=== PATIENT | male | born 1970 | race Caucasian/White ===

== ENCOUNTER 2023-09-26 20:13 | Observation (INO) | payer BC ==
[2023-09-26 21:17] LABS: Basophils # (A) 0.1 k/uL (0-0.2); Basophils % (A) 1 %; Eosinophils # (A) 0.2 k/uL (0-0.7); Eosinophils % (A) 2 %; HCT 49.6 % (39.0-53.0); HGB 17.2 gm/dL (13.0-17.5); Lymphocytes # (A) 2.7 k/uL (1.0-4.8); Lymphocytes % (A) 29 %; MCH 31.2 pg (25.0-35.0); MCHC 34.6 g/dL (31.0-37.0); MCV 90.1 fL (80.0-100.0); Mean Platelet Volume 8.4; Monocytes # (A) 0.5 k/uL (0-1.0); Monocytes % (A) 5 %; Neutrophils # (A) 5.6 k/uL (1.3-7.7); Neutrophils % (A) 61 %; Platelet Count 234 k/uL (150-450); RBC 5.51 m/uL (4.30-5.90); WBC 9.2 k/uL (3.8-10.6)
[2023-09-26 21:28] LABS: ALT 21 U/L (4-49); AST 27 U/L (17-59); African American GFR (CKD) >90 (>60 ml/min/1.73 sqM); Albumin 4.6 g/dL (3.5-5.0); Alkaline Phosphatase 56 U/L (38-126); Anion Gap 10 mmol/L; Blood Urea Nitrogen 15 mg/dL (9-20); Calcium 9.6 mg/dL (8.4-10.2); Carbon Dioxide 21 mmol/L (22-30); Chloride 107 mmol/L (98-107); Glucose 68 mg/dL (74-99); Lipase 100 U/L (23-300); Magnesium 2.1 mg/dL (1.6-2.3); Non-African American GFR(CKD) 81 (>60 ml/min/1.73 sqM); Potassium 4.6 mmol/L (3.5-5.1); Sodium 138 mmol/L (137-145); Total Protein 7.6 g/dL (6.3-8.2)
[2023-09-26 21:31] LABS: Prothrombin Time 11.2 sec (10.0-12.5)
[2023-09-26 21:32] LABS: Partial Thromboplastin Time 24.3 sec (22.0-30.0)
[2023-09-26 21:36] LABS: NT-Pro-B-Type Natriuretic Pept 97 pg/mL
[2023-09-26] MEDS ORDERED: NALOXONE 0.4 MG/ML 1 ML VIAL IV PRN (22:17)
[2023-09-26] MEDS: ASPIRIN 81 MG PO STA (22:21)
--- NOTE | 2023-09-26 22:33 | ED ---
Chest Pain HPI - General Chief Complaint: Chest Pain Stated Complaint: Chest Pain,Sob Time Seen by Provider: 09/26/23 21:26 Source: patient Mode of arrival: ambulatory Limitations: no limitations - History of Present Illness Initial Comments: 53-year-old male with history of CABG, diabetes, hypertension presenting with chief complaint of chest pain. Around 11 AM today patient started experiencing left-sided chest pressure that radiated down the left arm. This seems to be worse with exertion. He has not noted any shortness of breath. No recent injur y or trauma. Does not feel similar to recent muscular pain in the right shoulder and arm. No nausea vomiting or abdominal pain. No dizziness or weakness. No numbness or tingling. No lower extremity swelling, recent surgery, recent travel - Related Data Allergies Allergy/AdvReac Type Severity Reaction Status Date / Time No Known Allergies Allergy Verified 09/26/23 20:20 Review of Systems ROS Statement: Those systems with pertinent positive or pertinent negative responses have been documented in the HPI. ROS Other: All systems not noted in ROS Statement are negative. Past Medical History Past Medical History: Diabetes Mellitus, Hypertension History of Any Multi-Drug Resistant Organisms: None Reported Past Surgical History: Coronary Bypass/CABG Past Psychological History: Depression Smoking Status: Never smoker Past Alcohol Use History: Rare Past Drug Use History: Marijuana General Exam Limitations: no limitations General appearance: alert, in no apparent distress Head exam: Present: atraumatic, normocephalic, normal inspection Eye exam: Present: normal appearance, EOMI Neck exam: Present: normal inspection. Absent: meningismus Respiratory exam: Present: normal lung sounds bilaterally. Absent: respiratory distress, wheezes, rales, rhonchi, stridor Cardiovascular Exam: Present: regular rate, normal rhythm, normal heart sounds. Absent: systolic murmur, diastolic murmur, rubs, gallop, clicks Extremities exam: Absent: pedal edema Neurological exam: Present: alert, oriented X3 Psychiatric exam: Present: normal affect, normal mood Skin exam: Present: warm, dry Course Vital Signs 09/26/23 09/26/23 09/26/23 20:18 22:04 23:43 Temperature 98.1 F Pulse Rate 78 77 69 Respiratory 18 18 20 Rate Blood Pressure 115/76 135/86 138/72 O2 Sat by Pulse 100 98 98 Oximetry 09/27/23 01:00 Temperature Pulse Rate 74 Respiratory 16 Rate Blood Pressure 122/70 O2 Sat by Pulse 99 Oximetry Chest Pain MDM - MDM Sinus rhythm ventricular rate 76. OH interval 190. QRS 117. QT [address] deviation Was pt. sent in by a medical professional or institution ([facility], [facility], urgent care, hospital, or assisted...) When possible be specific @ -No Did you speak to anyone other than the patient for history (EMS, parent, family, police, friend...)? What history was obtained from this source @ -No Did you review nursing and triage notes (agree or disagree)? Why? @ -I reviewed and agree with nursing and triage notes Were old charts reviewed (outside hosp., previous admission, EMS record, old EKG, old radiological studies, urgent care reports/EKG's, assisted records)? Report findings @ -No old charts were reviewed Differential Diagnosis (chest pain, altered mental status, abdominal pain women, abdominal pain men, vaginal bleeding, weakness, fever, dyspnea, syncope, headache, dizziness, GI bleed, back pain, seizure, CVA, palpatations, mental health, musculoskeletal)? @ -Not applicable EKG interpreted by me (3pts min.). @ -As above X-rays interpreted by me (1pt min.). @ -Chest x-ray shows no acute cardiopulmonary abnormality. Mild degenerative changes of the spine and shoulders. The possibility of nondisplaced distal left clavicle fracture cannot be excluded, please correlate clinically CT interpreted by me (1pt min.). @ -None done U/S interpreted by me (1pt. min.). @ -None done What testing was considered but not performed or refused? (CT, X-rays, U/S, labs)? Why? @ -None What meds were considered but not given or refused? Why? @ -None Did you discuss the management of the patient with other professionals (professionals i.e. [facility], [facility], lab, RT, psych nurse, medical social worker, veneer layer, te acher, deputy juvenile officer, wrapper caser)? Give summary @ -I spoke with Melva Perez from [facility] who accepted admission Was smoking cessation discussed for >3mins.? @ -No Was critical care preformed (if so, how long)? @ -No Were there social determinants of health that impacted care today? How? (Homelessness, low income, unemployed, alcoholism, drug addiction, transportation, low edu. Level, literacy, decrease access to med. care, fdc, rehab)? @ -No Was there de-escalation of care discussed even if they declined (Discuss DNR or withdrawal of care, Hospice)? DNR status @ -No What co-morbidities impacted this encounter? (DM, HTN, Smoking, COPD, CAD, Cancer, CVA, ARF, Chemo, Hep., AIDS, mental health diagnosis, sleep apnea, morbid obesity)? @ -CABG, diabetes, hypertension Was patient admitted / discharged? Hospital course, mention meds given and route, prescriptions, significant lab abnormalities, going to OR and other pertinent info. @ -53-year-old male presenting with chief complaint of chest pain that started earlier today. History and physical exam are conducted. Lab work shows no leukocytosis or anemia. Negative troponin. Chest x-ray shows no acute cardiopulmonary abnormality. Patient is hypoglycemic, he is given juice and food. Patient is given aspirin. EKG shows no ischemic changes. Heart score is 5. Patient will be admitted for serial troponins and evaluation by cardiology. He is agreeable with this plan. I discussed this case with my attending Dr. Marroquin Undiagnosed new problem with uncertain prognosis? @ -No Drug Therapy requiring intensive monitoring for toxicity (Heparin, Nitro, Insulin, Cardizem)? @ -No Were any procedures done? @ -No Diagnosis/symptom? @ -Chest pain Acute, or Chronic, or Acute on Chronic? @ -Acute Uncomplicated (without systemic symptoms) or Complicated (systemic symptoms)? @ -Complicated Side effects of treatment? @ -No Exacerbation, Progression, or Severe Exacerbation? @ -No Poses a threat to life or bodily function? How? (Chest pain, [place], GA, pneumonia, PE, COPD, DKA, ARF, appy, cholecystitis, CVA, Diverticulitis, Homicidal, Suicidal, threat to staff... and all critical care pts) @ -Yes Disposition Clinical Impression: Chest pain Disposition: ADMITTED IP TO THIS HOSP Condition: Fair Time of Disposition: 22:33
[2023-09-26 23:14] LABS: Glucose,Whole Blood 61 mg/dL (70-110)
--- NOTE | 2023-09-27 00:06 | XR ---
EXAMINATION TYPE: XR chest 2V DATE OF EXAM: 09/26/2023 9:20 PM CLINICAL INDICATION:Male, 53 years old with history of Chest Pain; [facility] COMPARISON: None TECHNIQUE: XR chest 2V. Frontal and lateral views of the chest.. FINDINGS: Lines/Tubes/Devices: No indwelling lines are seen. EKG leads overlie the chest. Heart/mediastinum: Heart size is normal. Mediastinal contours appear normal. Multiple sternotomy wi res and mediastinal clips may be from CABG. There is a left atrial appendage occlusion device. Pulmonary vascularity: Not increased, Lungs/Pleura: There is no evidence of pleural effusion, focal consolidation, or pneumothorax. Musculoskeletal: No clear-cut acute osseous abnormality demonstrated in the limits of the exam. Mild degenerative changes of the dorsal spine. Mild degenerative changes of the shoulders, including the AC joints. There is questionably a slightly irregular appearance of the distal left clavicle, this is not well assessed by this study and could be related to degenerative changes, but the possibility of nondisplaced fracture cannot be excluded. Other findings: Unremarkable upper abdomen. No subdiaphragmatic free air. IMPRESSION: * No acute cardiopulmonary abnormality. * Mild degenerative changes of the spine and shoulders. * The possibility of nondisplaced distal left clavicle fracture cannot be excluded, please correlate clinically.
[2023-09-27 00:55] LABS: Glucose,Whole Blood 109 mg/dL (70-110)
[2023-09-27] MEDS: DEXTROSE 5%-0.9% NACL 1,000 ML IV SCH ×2 (00:56→07:22)
[2023-09-27] MEDS: DEXTROSE 50% SYRINGE 50 ML IVP STA (01:00)
[2023-09-27] MEDS ORDERED: DEXTROSE 50% SYRINGE 50 ML IVP PRN ×4 (04:02→10:27)
[2023-09-27 04:35] LABS: Glucose,Whole Blood 82 mg/dL (70-110)
[2023-09-27 06:30] LABS: Glucose,Whole Blood 76 mg/dL (70-110)
[2023-09-27] MEDS: INSULIN ASPART (NovoLOG) 100 UNIT/ML VIAL SQ SCH (07:30)
[2023-09-27 07:33] LABS: Glucose,Whole Blood 70 mg/dL (70-110)
[2023-09-27] MEDS ORDERED: ONDANSETRON 4 MG/2 ML VIAL IVP PRN (10:26)
[2023-09-27] MEDS ORDERED: ACETAMINOPHEN TAB 325 MG TAB PO PRN (10:26)
[2023-09-27 11:10] LABS: Glucose,Whole Blood 110 mg/dL (70-110)
[2023-09-27] MEDS: DAPAGLIFLOZIN PROPANEDIOL 10 MG TABLET PO SCH (11:37)
[2023-09-27] MEDS: ATORVASTATIN 10 MG TAB PO SCH (11:37)
[2023-09-27] MEDS: glipiZIDE 5 MG TAB PO SCH (11:37)
[2023-09-27] MEDS: METOPROLOL SUCCINATE (ER) 100 MG TAB.ER.24H PO SCH (11:37)
[2023-09-27] MEDS: buPROPion SR 150 MG TABLET.ER PO SCH (11:38)
[2023-09-27] MEDS: SACUBITRIL/VALSARTAN 24 MG-26 MG TABLET PO SCH (11:38)
[2023-09-27] MEDS: SODIUM CHLORIDE 0.9% 1,000 ML IV SCH (11:39)
--- NOTE | 2023-09-27 13:42 | P.HPIM ---
History of Present Illness H&P Date: 09/27/23 Chief Complaint: chest pain * 53-year-old gentleman with past medical history significant for diabetes mellitus, hypertension, coronary artery disease status post CABG presented to the emergency department with complains of left-sided chest pain. Patient states his symptoms were worse withexertion. Patient did not complain of associated diaphoresis, nausea, vomiting,tingling numbness * Workup in ER includedEKG which showed sinus rhythm, no significant ST segment changes * Chest x-ray obtained negative for acute cardiopulmonary process possibility of nondisplaced distal left clavicle fracture cannot be excluded * serial troponins obtained which were negative * Patient admitted with consultation from cardiology to rule out ACS REVIEW OF SYSTEMS: Chest pain, exertional chestpain CONSTITUTIONAL: No fever, no malaise, no fatigue. HEENT: No recent visual problems or hearing problems. Denied any sore throat. CARDIOVASCULAR: Chest pain, exertional chestpain PULMONARY: No shortness of breath, no cough, no hemoptysis. GASTROINTESTINAL: No diarrhea, no nausea, no vomiting, no abdominal pain. NEUROLOGICAL: No headaches, no weakness, no numbness. HEMATOLOGICAL: Denies any bleeding or petechiae. GENITOURINARY: Denies any burning micturition, frequency, or urgency. MUSCULOSKELETAL/RHEUMATOLOGICAL: Denies any joint pain, swelling, or any muscle pain. ENDOCRINE: Denies any polyuria or polydipsia. PHYSICAL EXAMINATION: GENERAL: The patient is alert and oriented x3, not in any acute distress. Well developed, well nourished. HEENT: Pupils are round and equally reacting to light. EOMI Normocephalic, atraumatic. No pharyngeal erythema. No thyromegaly. CARDIOVASCULAR: S1 and S2 present. No murmurs, rubs, or gallops. PULMONARY: Chest is clear to auscultation, no wheezing or crackles. ABDOMEN: Soft, nontender, nondistended, normoactive bowel sounds. No palpable organomegaly. MUSCULOSKELETAL: No joint swelling or deformity. EXTREMITIES: No cyanosis, clubbing, or pedal edema. NEUROLOGICAL: Gross neurological examination did not reveal any focal deficits. SKIN: No rashes. ASSESSMENT AND PLAN * Coronary artery disease with history of CABG in chest pain * Diabetes mellitus type 2 * Hyperlipidemia * In regards to chest pain serial troponins ordered, cardiology consult, continue telemetry monitoring * In regards to diabetes mellitus Accu-Cheks before meals at bedtime continue patient on correctional insulin monitor for hypoglycemia oral regimen continued * In regards to hyperlipidemia continue patient on Crestor * CODE STATUS is full code Past Medical History Past Medical History: Diabetes Mellitus, Hypertension History of Any Multi-Drug Resistant Organisms: None Reported Past Surgical History: Coronary Bypass/CABG Past Psychological History: Depression Smoking Status: Never smoker Past Alcohol Use History: Rare Past Drug Use History: Marijuana Medications and Allergies Home Medications Medication Instructions Recorded Confirmed Type Aspirin EC [Ecotrin Low Dose] 81 mg PO DAILY 09/27/23 09/27/23 History Empagliflozin [Jardiance] 25 mg PO DAILY 09/27/23 09/27/23 History Metoprolol Succinate (ER) [Toprol 100 mg PO DAILY 09/27/23 09/27/23 History Xl] Rosuvastatin Calcium 5 mg PO DAILY 09/27/23 09/27/23 History Sacubitril/Valsartan [Entresto 24 1 tab PO BID 09/27/23 09/27/23 History mg-26 mg Tablet] Tirzepatide [Mounjaro] 10 mg SQ TH 09/27/23 09/27/23 History buPROPion SR [Wellbutrin SR] 150 mg PO BID 09/27/23 09/27/23 History glipiZIDE [Glucotrol] 5 mg PO BID 09/27/23 09/27/23 History Allergies Allergy/AdvReac Type Severity Reaction Status Date / Time No Known Allergies Allergy Verified 09/27/23 10:17 Physical Exam Vitals: Vital Signs Temp Pulse Resp BP Pulse Ox 09/27/23 10:00 70 14 143/83 09/27/23 08:00 70 18 129/79 09/27/23 06:00 79 16 126/88 09/27/23 04:00 69 16 103/76 98 09/27/23 01:00 74 16 122/70 99 09/26/23 23:43 69 20 138/72 98 09/26/23 22:04 77 18 135/86 98 09/26/23 20:18 98.1 F 78 18 115/76 100 Intake and Output 09/26/23 09/27/23 09/27/23 22:59 06:59 14:59 Other: Weight 99.79 kg Results CBC & Chem 7: 09/26/23 21:09 09/26/23 21:09 Labs: Abnormal Lab Results - Last 24 Hours (Table) 09/26/23 09/26/23 Range/Units 21:09 23:12 Carbon Dioxide 21 L (22-30) mmol/L Glucose 68 L (74-99) mg/dL POC Glucose (mg/dL) 61 L (70-110) mg/dL
--- NOTE | 2023-09-27 14:04 | P.CRDCN ---
History of Present Illness Consult date: 09/27/23 Chief complaint: Chest pain History of present illness: The patient is a very pleasant 53-year-old female patient with a past medical history significant for coronary artery disease status post CABG x 4 about a year and a half ago according to him as well as diabetes and hypertension and dyslipidemia. The patient sees a volleyball assembler at [facility] and does not follow-up with any volleyball assembler locally here. He presented to the emergency department complaining of chest discomfort. He lives in [place] and works in this area. He was driving his car when he started experiencing discomfort on the left side of the chest as a dull feeling with radiation to the left arm lasted for about 10 minutes and resolved completely. No shortness of breath with it and no dizziness or lightheadedness and no feeling of heart racing or fluttering and no presyncope or syncope and currently his chest pain-free. He underwent further investigation including an EKG and that showed sinus mechanism with no ischemic ST or T wave abnormalities noted. Cardiac enzymes were checked and came in to be unremarkable. Chest x-ray did not show any acute abnormalities as well. The blood work including the CBC and BMP also came in to be unremarkable. The physical examination revealed regular rhythm with clear breathing sounds bilaterally and no edema was noted and he does have soft nontender abdomen. Assessment Atypical versus noncardiac chest discomfort Coronary artery disease status post CABG Multiple comorbid conditions including diabetes and hypertension and dyslipidemia Plan Acute coronary event was ruled out The patient will definitely benefit from stress test preferably as an inpatient. The patient would like to go home and have his volleyball assembler does the stress test for him. He stated that he has an upcoming appointment with his volleyball assembler and he would like to have the stress test done as an outpatient. Thank you for allowing us to participate in the care of the patient Past Medical History Past Medical History: Diabetes Mellitus, Hypertension History of Any Multi-Drug Resistant Organisms: None Reported Past Surgical History: Coronary Bypass/CABG Past Psychological History: Depression Smoking Status: Never smoker Past Alcohol Use History: Rare Past Drug Use History: Marijuana Medications and Allergies Home Medications Medication Instructions Recorded Confirmed Type Aspirin EC [Ecotrin Low Dose] 81 mg PO DAILY 09/27/23 09/27/23 History Empagliflozin [Jardiance] 25 mg PO DAILY 09/27/23 09/27/23 History Metoprolol Succinate (ER) [Toprol 100 mg PO DAILY 09/27/23 09/27/23 History Xl] Rosuvastatin Calcium 5 mg PO DAILY 09/27/23 09/27/23 History Sacubitril/Valsartan [Entresto 24 1 tab PO BID 09/27/23 09/27/23 History mg-26 mg Tablet] Tirzepatide [Mounjaro] 10 mg SQ TH 09/27/23 09/27/23 History buPROPion SR [Wellbutrin SR] 150 mg PO BID 09/27/23 09/27/23 History glipiZIDE [Glucotrol] 5 mg PO BID 09/27/23 09/27/23 History Allergies Allergy/AdvReac Type Severity Reaction Status Date / Time No Known Allergies Allergy Verified 09/27/23 10:17 Physical Exam Vitals: Vital Signs Temp Pulse Resp BP Pulse Ox 09/27/23 10:00 70 14 143/83 09/27/23 08:00 70 18 129/79 09/27/23 06:00 79 16 126/88 09/27/23 04:00 69 16 103/76 98 09/27/23 01:00 74 16 122/70 99 09/26/23 23:43 69 20 138/72 98 09/26/23 22:04 77 18 135/86 98 09/26/23 20:18 98.1 F 78 18 115/76 100 Intake and Output 09/26/23 09/27/23 09/27/23 22:59 06:59 14:59 Other: Weight 99.79 kg Results 09/26/23 21:09 09/26/23 21:09 Cardiac Enzymes 09/26/23 09/26/23 09/27/23 Range/Units 21:09 21:09 01:22 AST 27 (17-59) U/L Troponin I <0.012 <0.012 (0.000-0.034) ng/mL 09/27/23 Range/Units 03:38 AST (17-59) U/L Troponin I <0.012 (0.000-0.034) ng/mL Coagulation 09/26/23 Range/Units 21:09 PT 11.2 (10.0-12.5) sec APTT 24.3 (22.0-30.0) sec CBC 09/26/23 Range/Units 21:09 WBC 9.2 (3.8-10.6) k/uL RBC 5.51 (4.30-5.90) m/uL Hgb 17.2 (13.0-17.5) gm/dL Hct 49.6 (39.0-53.0) % Plt Count 234 (150-450) k/uL Comprehensive Metabolic Panel 09/26/23 Range/Units 21:09 Sodium 138 (137-145) mmol/L Potassium 4.6 (3.5-5.1) mmol/L Chloride 107 (98-107) mmol/L Carbon Dioxide 21 L (22-30) mmol/L BUN 15 (9-20) mg/dL Creatinine 1.04 (0.66-1.25) mg/dL Glucose 68 L (74-99) mg/dL Calcium 9.6 (8.4-10.2) mg/dL AST 27 (17-59) U/L ALT 21 (4-49) U/L Alkaline Phosphatase 56 (38-126) U/L Total Protein 7.6 (6.3-8.2) g/dL Albumin 4.6 (3.5-5.0) g/dL Current Medications Generic Name Dose Route Start Last Admin Trade Name Freq PRN Reason Stop Dose Admin Acetaminophen 650 mg 09/27/23 10:26 Acetaminophen Tab 325 Mg Tab PO Q6HR PRN Mild Pain or Fever > 100.5 Atorvastatin Calcium 10 mg 09/27/23 10:30 09/27/23 11:37 Atorvastatin 10 Mg Tab PO 10 mg DAILY DEBBY Administration Bupropion HCl 150 mg 09/27/23 10:30 09/27/23 11:38 Bupropion Sr 150 Mg Tablet.Er PO 150 mg BID DEBBY Administration Dapagliflozin 10 mg 09/27/23 10:30 09/27/23 11:37 Dapagliflozin Propanediol 10 Mg Tablet PO 10 mg DAILY DEBBY Administration Dextrose/Water 25 ml 09/27/23 10:27 Dextrose 50% Syringe 50 Ml IVP PER PROTOCOL PRN Hypoglycemia Protocol Dextrose/Water 50 ml 09/27/23 10:27 Dextrose 50% Syringe 50 Ml IVP PER PROTOCOL PRN Hypoglycemia Protocol Glipizide 5 mg 09/27/23 10:30 09/27/23 11:37 Glipizide 5 Mg Tab PO 5 mg BID DEBBY Administration Sodium Chloride 1,000 mls @ 20 mls/hr 09/27/23 10:30 09/27/23 11:39 Saline 0.9% IV 20 mls/hr .Q24H DEBBY Administration Insulin Aspart 0 unit 09/27/23 07:30 09/27/23 07:30 Insulin Aspart (Novolog) 100 Unit/Ml Vial SQ Not Given ACHS DEBBY Protocol Metoprolol Succinate 100 mg 09/27/23 10:30 09/27/23 11:37 Metoprolol Succinate (Er) 100 Mg Tab.Er.24h PO 100 mg DAILY DEBBY Administration Naloxone HCl 0.2 mg 09/26/23 22:17 Naloxone 0.4 Mg/Ml 1 Ml Vial IV Q2M PRN Opioid Reversal Ondansetron HCl 4 mg 09/27/23 10:26 Ondansetron 4 Mg/2 Ml Vial IVP Q8HR PRN Nausea And Vomiting Sacubitril/Valsartan 1 each 09/27/23 10:30 09/27/23 11:38 Sacubitril/Valsartan 24 Mg-26 Mg Tablet PO 1 each BID DEBBY Administration Intake and Output 09/26/23 09/27/23 09/27/23 22:59 06:59 14:59 Other: Weight 99.79 kg 09/26/23 21:09 09/26/23 21:09
[2023-09-27 19:01] VITALS: BP 139/89; PULSE 87; RESP 16; TEMP 98.7
--- NOTE | 2023-09-27 19:21 | P.DS ---
Providers Date of admission: 09/26/23 23:24 Expected date of discharge: 09/27/23 Attending physician: Stefan Ac Consults: 09/26/23 22:17 Consult Physician Urgent Consulting Provider: [facility] Consult Reason/Comments: chest pain Do you want consulting provider notified?: Yes, Notify in am Primary care physician: [facility] Course: 53-year-old gentleman with past medical history significant for diabetes mellitus, hypertension, coronary artery disease status post CABG presented to the emergency department with complains of left-sided chest pain. Patient states his symptoms were worse withexertion. Patient did not complain of associated diaphoresis, nausea, vomiting,tingling numbness * Workup in ER includedEKG which showed sinus rhythm, no significant ST segment changes * Chest x-ray obtained negative for acute cardiopulmonary process possibility of nondisplaced distal left clavicle fracture cannot be excluded * serial troponins obtained which were negative * Patient admitted with consultation from cardiology to rule out ACS PHYSICAL EXAMINATION: GENERAL: The patient is alert and oriented x3, not in any acute distress. Well developed, well nourished. HEENT: Pupils are round and equally reacting to light. EOMI Normocephalic, atraumatic. No pharyngeal erythema. No thyromegaly. CARDIOVASCULAR: S1 and S2 present. No murmurs, rubs, or gallops. PULMONARY: Chest is clear to auscultation, no wheezing or crackles. ABDOMEN: Soft, nontender, nondistended, normoactive bowel sounds. No palpable organomegaly. MUSCULOSKELETAL: No joint swelling or deformity. EXTREMITIES: No cyanosis, clubbing, or pedal edema. NEUROLOGICAL: Gross neurological examination did not reveal any focal deficits. SKIN: No rashes. ASSESSMENT AND PLAN * Coronary artery disease with history of CABG in chest pain * Diabetes mellitus type 2 * Hyperlipidemia * In regards to chest pain serial troponins ordered, cardiology consult, continue telemetry monitoring * In regards to diabetes mellitus Accu-Cheks before meals at bedtime * Did not want to stay for further work, requested Discharge, understand the risk he can have an WI and jeopardized health to the point can have cardiac arrest, Patient Condition at Discharge: Fair Plan - Discharge Summary New Discharge Prescriptions: Continue glipiZIDE [Glucotrol] 5 mg PO BID buPROPion SR [Wellbutrin SR] 150 mg PO BID Tirzepatide [Mounjaro] 10 mg SQ TH Rosuvastatin Calcium 5 mg PO DAILY Metoprolol Succinate (ER) [Toprol XL] 100 mg PO DAILY Sacubitril/Valsartan [Entresto 24 mg-26 mg Tablet] 1 tab PO BID Aspirin EC [Ecotrin Low Dose] 81 mg PO DAILY Empagliflozin [Jardiance] 25 mg PO DAILY Discharge Medication List Aspirin EC [Ecotrin Low Dose] 81 mg PO DAILY 09/27/23 [History] Empagliflozin [Jardiance] 25 mg PO DAILY 09/27/23 [History] Metoprolol Succinate (ER) [Toprol XL] 100 mg PO DAILY 09/27/23 [History] Rosuvastatin Calcium 5 mg PO DAILY 09/27/23 [History] Sacubitril/Valsartan [Entresto 24 mg-26 mg Tablet] 1 tab PO BID 09/27/23 [History] Tirzepatide [Mounjaro] 10 mg SQ TH 09/27/23 [History] buPROPion SR [Wellbutrin SR] 150 mg PO BID 09/27/23 [History] glipiZIDE [Glucotrol] 5 mg PO BID 09/27/23 [History] Follow up Appointment(s)/Referral(s): Kameron Xavier MD [Primary Care Provider] - 1-2 days Discharge Disposition: HOME SELF-CARE
== END 2023-09-27 19:42 | disposition home or self-care (01) ==
LOC: EC 20:13 → 6NMEDSUR 23:24
PROVIDERS: ADMIT Hospitalist; ATTEND Hospitalist
DX: R07.89 Other chest pain (principal); R06.02 Shortness of breath; M79.602 Pain in left arm; E11.649 Type 2 diabetes mellitus with hypoglycemia without coma; I25.10 Atherosclerotic heart disease of native coronary artery without angina pectoris; I10 Essential (primary) hypertension; E78.5 Hyperlipidemia, unspecified; Z79.82 Long term (current) use of aspirin; Z79.84 Long term (current) use of oral hypoglycemic drugs; Z79.85 Long-term (current) use of injectable non-insulin antidiabetic drugs; Z79.899 Other long term (current) drug therapy; Z95.1 Presence of aortocoronary bypass graft
CPT/HCPCS: 99285; 36415; 93005; 83880; 80053; 83690; 83735; 84484 ×2; 85025; 85610; 85730; 71046; G0378 ×2; S0106